=== PATIENT | female | born 1960 | race Hispanic/Latino ===

== ENCOUNTER 2021-11-13 06:37 | Day surgery (SDC) | payer BC ==
[2021-11-11 11:04] LABS: BASOPHILS % (AUTO) 0.9 % (0.0-5.0); EOSINOPHILS % (AUTO) 3.8 % (0.0-8.0); HEMATOCRIT 41.4 % (36-48); LYMPHOCYTES % (AUTO) 28.5 % (21.0-51.0); MEAN CORPUSCULAR HEMOGLOBIN 29.8 pg (27.0-33.0); MEAN CORPUSCULAR HGB CONC 33.8 g/dL (32.0-36.0); MEAN CORPUSCULAR VOLUME 88.1 fL (79-99); MONOCYTES % (AUTO) 10.3 % (3.0-13.0); NEUTROPHILS % (AUTO) 55.4 % (40.0-77.0); PLATELET COUNT (AUTO) 273 K/uL (130-400); RED CELL DISTRIBUTION WIDTH 11.9 % (11.0-15.5); WHITE BLOOD COUNT (AUTO) 6.5 K/uL (4.8-10.8)
[2021-11-11 11:16] LABS: CREATININE 0.9 mg/dL (0.5-1.5); POTASSIUM 4.4 mmol/L (3.5-5.1)
[2021-11-13] VITALS (15 sets, daily range): BP systolic 113–142; BP diastolic 48–76
[~2021-11-13] VITALS: Ht 127 cm; Wt 75.0 kg
[~2021-11-13 06:37] MED LIST: ALBU8.5H8 IH; IBUP-2482 PO; MELO-108 PO; PANT40TA PO; ROSU5TAB12 PO
[2021-11-13] MEDS ORDERED: LACTATED RINGERS 1000ML 1,000 ML IV ONE (07:09)
[2021-11-13] MEDS ORDERED: CEFAZOLIN SODIUM 1 GM VIAL ONE (07:09)
[2021-11-13] MEDS: CEFAZOLIN SODIUM 2 GM VIAL IV SCH ×2 (07:20→08:30)
[2021-11-13] MEDS ORDERED: SUCCINYLCHOLINE 200MG/10ML SYR ONE (08:07)
[2021-11-13] MEDS ORDERED: LIDOCAINE PF 100MG/5ML (2%) SYRINGE 5ML ONE (08:07)
[2021-11-13] MEDS ORDERED: PROPOFOL 10 MG/ML 20ML VIAL IV ONE (08:08)
[2021-11-13] MEDS ORDERED: FENTANYL CITRATE PF 50 MCG/1 ML 2ML VIAL ONE (08:08)
[2021-11-13] MEDS ORDERED: MIDAZOLAM HCL 1 MG/ML 2ML VIAL ONE (08:08)
[2021-11-13] MEDS ORDERED: CEPH500B PO (09:17)
[2021-11-13] MEDS ORDERED: ACET1TAB25 PO (09:17)
[2021-11-13] MEDS ORDERED: MEPERIDINE-PF 25 MG/ML SYG ONE (09:29)
== END 2021-11-13 10:55 | disposition home or self-care (01) ==
LOC: DAH 06:37
PROVIDERS: ATTEND Orthopaedic Surgery
DX: M23.321 Other meniscus derangements, posterior horn of medial meniscus, right knee (principal); Z20.822 Contact with and (suspected) exposure to COVID-19; Z90.710 Acquired absence of both cervix and uterus; Z98.890 Other specified postprocedural states; Z79.899 Other long term (current) drug therapy
CPT/HCPCS: 29881; 36415; 80048; 85025; 87635; A4215; A4221; A4222; A4223; A4649; A4663; A4930; A5120; A6223; C9803; J0330; J0690; J2001; J2175; J2250; J2704; J3010; J7120 ×2